=== PATIENT | female | born 1950 | race Caucasian/White ===

== ENCOUNTER 2018-06-28 10:38 | Observation (INO) ==
[2018-06-28] MEDS ORDERED: Ondansetron 4 MG/2 ML VIAL IVP ONE (11:02)
[2018-06-28] MEDS ORDERED: Pantoprazole 80 MG in 0.9 % Sodium Chloride 50 ML IVPB ONE (11:02)
--- NOTE | 2018-06-28 11:04 | Emergency Department Note ---
Disposition Clinical Impression: Upper gastrointestinal hemorrhage Disposition: Still a Patient Condition: Undetermined Referrals: Susy London CNP [Primary Care Provider] - Forms: ED Satisfaction Letter GI Bleed HPI - General Chief complaint: ED GI Bleed Stated complaint: "vomiting blood,rectal bleeding" Time Seen by Provider: 06/28/18 10:49 Source: patient, family Mode of arrival: private vehicle Limitations: no limitations Nursing Notes Reviewed: Yes Vital Signs Reviewed: Yes - History of Present Illness Pt Subjective Complaint: coffee ground emesis, melena Onset (ago): hour(s) Number of episodes: 3 Consistency: intermittent Severity: mild Improves with: nothing Worsens with: nothing Context: history of GI bleed Associated symptoms: Reports: abdominal pain, nausea, vomiting, chills, loss of appetite. Denies: epistaxis, fever, headaches, malaise, easy bruising, rash, other bleeding source, shortness of breath, syncope/near-syncope, weakness Treatments Prior to Arrival: none - Related Data Home Medications Medication Instructions Recorded Confirmed Albuterol Sulfate [Albuterol 2 puff IH Q6HR 08/26/15 08/01/16 Inhaler] Ferrous Sulfate 325 mg PO DAILY 08/26/15 08/01/16 Fluticasone/Salmeterol [Advair 1 each IH BID 08/26/15 08/01/16 250-50 Diskus] Sertraline [Zoloft] 25 mg PO DAILY 08/26/15 08/01/16 clonazePAM [Clonazepam] 0.25 mg PO DAILY 08/26/15 08/01/16 Aspirin Enteric Coated [Aspirin EC] 81 mg PO DAILY 05/26/16 08/01/16 Diltiazem HCl [Cardizem Cd] 360 mg PO DAILY 05/26/16 08/01/16 Breo Ellipta 100-25 Mcg INH 03/14/18 Previous Rx's Medication Instructions Recorded Acetaminophen [Tylenol] 500 mg PO Q6HR PRN #20 tablet 03/14/18 Allergies Allergy/AdvReac Type Severity Reaction Status Date / Time cephalexin [From Keflex] Allergy Rash Verified 03/14/18 16:52 All systems ED: reviewed and negative except as stated. Review of Systems: As Per HPI Constitutional: Reports: as per HPI, chills. Denies: fever, weakness, weight change Eyes: Denies: vision change Cardiovascular: Denies: chest pain, palpitations, dyspnea on exertion, orthopnea , edema, syncope Respiratory: Denies: cough, dyspnea, wheezes Gastrointestinal: Reports: as per HPI, abdominal pain, nausea, vomiting, melena. Denies: diarrhea, constipation, hematemesis, hematochezia Genitourinary: Denies: urgency, dysuria, frequency, hematuria Musculoskeletal: Denies: back pain Neurological: Denies: weakness, numbness, paresthesias, vertigo Endocrine: Denies: fatigue Hematological/Lymphatic: Denies: easy bleeding, easy bruising Past Medical History - Past Medical History Attestation: Yes The following information was validated with the patient. Source: patient Medical history: Reports: GERD, GI bleed Surgical history: Reports: orthopedic, other Psychiatric history: Reports: anxiety COAL BAGGER history: Reports: no COAL BAGGER history - Social History Smoking Status: Current every day smoker Smokeless Tobacco Status: No Alcohol use: Reports: none Drug use: Reports: none Physical Exam - General Limitations: no limitations General appearance: alert, in no apparent distress, anxious, other (diaphoretic) - Head Head exam: atraumatic, normocephalic, normal inspection - Eye Eye exam: Present: normal appearance, PERRL. Absent: scleral icterus, conjunctival injection, periorbital swelling - ENT ENT exam: mucous membranes dry - Neck Neck exam: Present: normal inspection, trachea midline - Expanded Neck Exam Neck exam focused ED: Absent: JVD - Chest Chest inspection: Present: normal inspection - Respiratory Respiratory exam: Present: wheezes (mild, bilateral upper). Absent: respiratory distress - Cardiovascular Cardiovascular exam: Present: normal rhythm, tachycardia - Abdominal Exam Abdominal exam: Present: soft, tenderness, distention, hypoactive bowel sounds. Absent: guarding, rebound, rigidity, Rollins's sign, ascites, mass, pulsatile mass Abdominal tenderness: Present: epigastrium, mild - Extremities Exam Extremities exam: Present: normal inspection, full ROM. Absent: tenderness, pedal edema - Neurological Exam Neurological exam: Present: alert, oriented X3, CN II-XII intact - Psychiatric Psychiatric exam: Present: normal affect, anxious - Skin Skin exam: Present: warm, dry, intact, normal color Course Course Narrative: Patient with history of previous peptic ulcer disease and bleeding ulcer back in 2016 presents from home for evaluation of epigastric pain and coffee-ground emesis 3 this morning. She also describes a dark color to her stool this morning. She denies melena prior to today. She had three episodes of emesis which she describes as about a cup or less and dark brown. Her pain is better now, despite any intervention. She continues to be nauseated and is diaphoretic. She denies chest pain, shortness of breath beyond her baseline COPD, dizziness, vertigo or syncope. She denies use of any blood thinners. On exam, she is tachycardic with mild epigastric tenderness, Mild abdominal distention, black stool on rectal exam, mild diaphoresis and mild symmetric peripheral edema. She also has diffuse wheezes upper anterior. Heart sounds are normal. No murmur. She is tachycardic. Two large bore IVs have been ordered along with an Accu-Check, EKG, type and screen, screening labs , Zofran and Protonix. Blood pressure is elevated at this time. Fluids have been ordered. At 150 per hour. Case discussed with Dr. Macdonald. He has had [id number] time with the patient has reviewed her EKG and will be taking over care of this patient. Vital Signs Temperature 98.2 F 06/28/18 10:40 Pulse Rate 122 06/28/18 10:40 Respiratory Rate 22 06/28/18 10:40 Blood Pressure 146/93 06/28/18 10:40 O2 Sat by Pulse Oximetry 96 06/28/18 10:40 Temperature 98.2 F 06/28/18 10:51 Pulse Rate 109 06/28/18 11:09 Respiratory Rate 19 06/28/18 11:09 Blood Pressure 115/88 06/28/18 11:09 O2 Sat by Pulse Oximetry 96 06/28/18 11:09 Oxygen Delivery Oxygen Delivery Room Air GI Bleed - Medical Records Medical records reviewed: Yes I reviewed the patient's medical records. - Lab Data Result diagrams: 06/28/18 11:15 06/28/18 11:15 Lab Results 06/28/18 06/28/18 06/28/18 Range/Units 11:14 11:15 11:15 WBC 8.2 (4.3-11.1) K/mcL RBC 4.64 (3.82-4.97) M/mcL Hgb 12.3 (11.5-15.4) g/dL Hct 38.9 (35.3-44.9) % MCV 83.8 (83.0-100.0) fL MCH 26.5 L (28.0-33.3) pg MCHC 31.6 (31.6-35.5) g/dL RDW 14.2 (11.5-14.5) % Plt Count 263 (140-400) K/mcL MPV 9.7 (9.4-12.4) fL Immature Gran % 0.5 (0-4) % Seg Neutrophils % 76.7 % Lymphocytes % 14.0 % Monocytes % 6.1 % Eosinophils % 2.2 % Basophils % 0.5 % Neutrophils # 6.3 (1.6-8.9) K/mcL Lymphocytes # 1.1 (0.6-4.6) K/mcL Monocytes # 0.5 (0.0-1.3) K/mcL Eosinophils # 0.2 (0.0-0.6) K/mcL Basophils # 0.0 (0.0-0.2) K/mcL PT 12.3 H (9.4-12.1) Seconds INR 1.1 APTT 28.7 (26.0-36.0) Seconds Sodium (136-145) mEq/L Potassium (3.5-5.1) mEq/L Chloride (98-107) mEq/L Carbon Dioxide (23-29) mEq/L BUN (8-23) mg/dL Creatinine (0.60-1.20) mg/dL Est GFR ( Amer) (> 60) Est GFR (Non-Af Amer) (> 60) BUN/Creatinine Ratio (6-26) Glucose (70-105) mg/dL POC Glucose 126 H (70-99) mg/dL Calculated Osmolality (280-300) Calcium (8.6-10.3) mg/dL Magnesium (1.6-2.6) mg/dL Total Bilirubin (0.3-1.0) mg/dL AST (13-39) Units/L ALT (7-52) Units/L Alkaline Phosphatase (34-104) Units/L Serum Total Protein (6.4-8.9) g/dL Albumin (3.5-5.7) g/dL Globulin (2.4-3.5) g/dL Albumin/Globulin Ratio (1.1-2.2) Lipase (11-82) Units/L Stool Occult Bld Scrn (Negative) Blood Type Antibody Screen 06/28/18 06/28/18 06/28/18 Range/Units 11:15 11:15 Unknown WBC (4.3-11.1) K/mcL RBC (3.82-4.97) M/mcL Hgb (11.5-15.4) g/dL Hct (35.3-44.9) % MCV (83.0-100.0) fL MCH (28.0-33.3) pg MCHC (31.6-35.5) g/dL RDW (11.5-14.5) % Plt Count (140-400) K/mcL MPV (9.4-12.4) fL Immature Gran % (0-4) % Seg Neutrophils % % Lymphocytes % % Monocytes % % Eosinophils % % Basophils % % Neutrophils # (1.6-8.9) K/mcL Lymphocytes # (0.6-4.6) K/mcL Monocytes # (0.0-1.3) K/mcL Eosinophils # (0.0-0.6) K/mcL Basophils # (0.0-0.2) K/mcL PT (9.4-12.1) Seconds INR APTT (26.0-36.0) Seconds Sodium 141 (136-145) mEq/L Potassium 4.4 (3.5-5.1) mEq/L Chloride 111 H (98-107) mEq/L Carbon Dioxide 24 (23-29) mEq/L BUN 36 H (8-23) mg/dL Creatinine 0.71 (0.60-1.20) mg/dL Est GFR ( Amer) > 60 (> 60) Est GFR (Non-Af Amer) > 60 (> 60) BUN/Creatinine Ratio 51 H (6-26) Glucose 122 H (70-105) mg/dL POC Glucose (70-99) mg/dL Calculated Osmolality 302 H (280-300) Calcium 9.1 (8.6-10.3) mg/dL Magnesium 2.1 (1.6-2.6) mg/dL Total Bilirubin 0.4 (0.3-1.0) mg/dL AST 9 L (13-39) Units/L ALT 10 (7-52) Units/L Alkaline Phosphatase 81 (34-104) Units/L Serum Total Protein 6.3 L (6.4-8.9) g/dL Albumin 3.7 (3.5-5.7) g/dL Globulin 2.6 (2.4-3.5) g/dL Albumin/Globulin Ratio 1.4 (1.1-2.2) Lipase 11 (11-82) Units/L Stool Occult Bld Scrn Positive A (Negative) Blood Type O POSITIVE Antibody Screen NEGATIVE Attestation Statement - Attestation Attestation: Dr Macdonald note: Patient was seen in conjunction with physician promotions assistant sales marketing Juliane Peoples. Please see her charting for complete documentation. Assessment [id number] time with the patient and agree with patient's treatment and disposition. Patient will be admitted to the hospitalist with a surgical/endoscopy consult to the surgeon Dr. Marie whom I spoke with. The patient does not require an emergent endoscopy at this time but may require admission. Patient's heart rate has stabilized to 100 bpm after she vomited in the ER. She has had vague intermittent epigastric pain for days to weeks. History of same but much more severe couple years ago for which a transfusion was required. Clinically she does not require a transfusion at this time. Will be admitted for serial hemoglobin and symptomatic support. Admitted and stabilized improved condition
[2018-06-28] MEDS ORDERED: 0.9 % Sodium Chloride 1,000 ML IVC ONE (11:09)
[2018-06-28 11:34] LABS: Basophils % 0.5 %; Eosinophils # 0.2 K/mcL (0.0-0.6); Eosinophils % 2.2 %; Hematocrit 38.9 % (35.3-44.9); Hemoglobin 12.3 g/dL (11.5-15.4); Immature Granulocytes % 0.5 % (0-4); Lymphocytes # 1.1 K/mcL (0.6-4.6); Mean Corpuscular HGB Conc 31.6 g/dL (31.6-35.5); Mean Corpuscular Hemoglobin 26.5 pg (28.0-33.3); Mean Corpuscular Volume 83.8 fL (83.0-100.0); Mean Platelet Volume 9.7 fL (9.4-12.4); Monocytes # 0.5 K/mcL (0.0-1.3); Monocytes % 6.1 %; Neutrophils # 6.3 K/mcL (1.6-8.9); Platelet Count 263 K/mcL (140-400); Red Blood Count 4.64 M/mcL (3.82-4.97); Red Cell Distribution Width 14.2 % (11.5-14.5); Segmented Neutrophils % 76.7 %
[2018-06-28 11:39] LABS: INR 1.1; Prothrombin Time 12.3 Seconds (9.4-12.1)
[2018-06-28 11:43] LABS: Activated Partial Thrombo Time 28.7 Seconds (26.0-36.0)
[2018-06-28] MEDS ORDERED: Pantoprazole 40 MG VIAL IVP ONE (11:50)
[2018-06-28 11:54] LABS: Alanine Aminotransferase 10 Units/L (7-52); Albumin 3.7 g/dL (3.5-5.7); Albumin/Globulin Ratio 1.4 (1.1-2.2); Alkaline Phosphatase 81 Units/L (34-104); Aspartate Amino Transferase 9 Units/L (13-39); BUN/Creatinine Ratio 51 (6-26); Bilirubin,Total 0.4 mg/dL (0.3-1.0); Blood Urea Nitrogen 36 mg/dL (8-23); Calcium 9.1 mg/dL (8.6-10.3); Carbon Dioxide 24 mEq/L (23-29); Chloride 111 mEq/L (98-107); Globulin 2.6 g/dL (2.4-3.5); Glucose 122 mg/dL (70-105); Lipase 11 Units/L (11-82); Magnesium 2.1 mg/dL (1.6-2.6); Osmolality,Calculated 302 (280-300); Potassium 4.4 mEq/L (3.5-5.1); Sodium 141 mEq/L (136-145); Total Protein 6.3 g/dL (6.4-8.9); eGFR For Non-African Americans > 60 (> 60)
[2018-06-28] MEDS ORDERED: *HR* Promethazine 25 MG/ML VIAL IVP PRN (14:38)
[2018-06-28] MEDS ORDERED: Ondansetron 4 MG/2 ML VIAL IVP PRN (14:38)
[2018-06-28] MEDS ORDERED: Naloxone 0.4 MG/ML INJ IVP PRN (15:09)
--- NOTE | 2018-06-28 15:29 | Internal Med History&Physical ---
<JillianarvingertrudisMatthew jain - Last Filed: 06/28/18 16:07> Date of Encounter: 06/28/18 Time of Encounter: 14:30 Internal Medicine - H&P: HPI Chief complaint: GI bleed Admitted From: Emergency Dept Plans for Post Hospital Care: Home History of present illness: Ms. Abebe is a 68 year old female w/PMH of GERD previous GI bleed from peptic ulcer, COPD, HTN, anxiety, and chronic tobacco abuse presents from the ED with chief complaint of GI bleeding that began this morning. Patient reports 3 episodes of hematemesis with coffee-ground consistency and 1 episode of melanotic stool. Pt. hospitalized in 07/2016 for GI bleed. EGD on 08/01/16 showed normal ampulla, first part of the duodenum and second part of the duodenum.b gastritis with biopsy. Nonbleeding gastric ulcer with no stigmata of bleeding which was biopsied. Large hiatal hernia. Benign-appearing esophageal stenosis which was dilated and biopsied. Pt. reports epigastric pain for the past 6 weeks intermittently which has become constant over the past week. No alleviating or aggravating factors. Reports compliance w/PO Prilosec daily. Pt. reports N/V, abdominal pain, and SOB d/t COPD but denies recent illness, fever, chills, headache, changes in vision, chest pain, diarrhea, constipation, dizziness, lightheadedness, numbness, tingling, pre-syncope, or syncope. Past Med Surg Social Fam HX - Past Medical History Source: patient, old records reviewed, obtained from family Medical history: COPD, GERD, GI bleed, hypertension Additional medical history: Anemia. Uterine Prolapse. PUD Psychiatric history: anxiety - Past Surgical History Surgical History: orthopedic, other Additional surgical history: AVNRT Ablation. Right and Left Knee Scope. Right foot - Social History Smoking Status: Current every day smoker Packs per day: 1 PPD Smokeless Tobacco Status: No Alcohol use: rarely Drug use: marijuana Current living situation: Home, With Family Activity Level: Independent ambulation Recent Out of Country Travel Within the Last 8 Weeks: No Exposure or Possible Exposure to Illness During Travel: No - Family History Brother Race: Family Member Ethnicity: Non- Living Status: Age at : 75 Cause of : COPD Hx Family Cardiac Disorders: Yes (CAD) Hx Family Respiratory Disorders: Yes (COPD) Sister Race: Family Member Ethnicity: Non- Living Status: Age at : 63 Cause of : COPD Hx Family Cardiac Disorders: Yes (OR, Weakened heart from rheumatic fever) Hx Family Respiratory Disorders: Yes (COPD) Father Race: Family Member Ethnicity: Non- Living Status: Age at : 62 Cause of : Esophageal cancer Hx Family Cardiac Disorders: Yes (OR, CVA) Hx Family Neurologic Disorders: Yes (CVA) Mother Race: Family Member Ethnicity: Non- Living Status: Age at : 81 Cause of : Aneurysm in stomach that ruptured Hx Family Cardiac Disorders: Yes (Aneurysm, Pacemaker) Internal Medicine - H&P: Meds Fluticasone/Salmeterol [Advair 250-50 Diskus] 1 puff IH BID 08/26/15 [History] Aspirin Enteric Coated [Aspirin EC] 81 mg PO DAILY 05/26/16 [History] Diltiazem HCl [Cardizem Cd] 360 mg PO DAILY 05/26/16 [History] Acetaminophen [Tylenol] 500 mg PO Q6HR PRN #20 tablet 03/14/18 [Rx] Albuterol Sulfate [Albuterol Inhaler] 2 puff IH Q6H PRN 06/28/18 [History] Omeprazole [PriLOSEC] 40 mg PO DAILY 06/28/18 [History] Sertraline [Zoloft] 25 mg PO DAILY 06/28/18 [History] clonazePAM [Clonazepam] 0.25 mg PO DAILY PRN 06/28/18 [History] 3 Allergy/AdvReac Type Severity Reaction Status Date / Time cephalexin [From Keflex] Allergy Rash Verified 03/14/18 16:52 All Systems PM: A 10-system review of systems was performed and is negative for pertinent findings except as documented above in the HPI. - Constitutional Constitutional: as per HPI, weakness (Bilateral LEs), no chills, no fever(s), no night sweats - EENT Eyes: no change in vision, no discharge, no pain, no photophobia Ears: no ear discharge, no ear pain, no tinnitus Nose, mouth and throat: no dysphagia, no nasal discharge, no neck pain, no sore throat - Breasts Breasts: as per HPI - Cardiovascular Cardiovascular ROS IM: as per HPI, dyspnea, dyspnea on exertion, no chest pain, no diaphoresis, no lightheadedness, no palpitations, no syncope - Respiratory Respiratory: as per HPI, dyspnea, dyspnea on exertion, no cough, no wheezing, no excessive phlegm production - Gastrointestinal Gastrointestinal: as per HPI, abdominal pain, hematemesis, melena, nausea, vomiting, no diarrhea, no hematochezia - Genitourinary Genitourinary: no change in urinary stream, no dysuria, no flank pain, no hematuria Menstruation: as per HPI - Musculoskeletal Musculoskeletal ROS IM: no numbness, no tingling - Integumentary Integumentary IM: no rash, no unusual bruising - Neurological Neurological ROS: as per HPI, weakness (Bilateral LEs), no confusion, no convulsions, no focal weakness, no numbness, no tingling, no tremor(s) - Psychiatric Psychiatric: as per HPI, anxiety - Endocrine Endocrine IM: as per HPI - Hematologic/Lymphatic Hematologic/Lymphatic: no easy bruising - Allergic/Immunologic Allergic/Immunologic: as per HPI - Constitutional Vitals: Temp Pulse Resp BP Pulse Ox 98.1 F 100 14 107/75 95 06/28/18 14:09 06/28/18 14:09 06/28/18 14:09 06/28/18 14:06/28/18 14:09 General appearance: Present: cooperative, mild distress (Nausea, abdominal pain , SOB), A&O X 3, pleasant, obese, answers questions appropriately Exam: Patient examined at bedside. Pt. reports epigastric pain currently w/nausea but denies vomiting. Also reports SOB d/t COPD hx. NPO status d/t plan for possible EGD today. Pt. denies any other sx or complaints on exam. VS: 98.2F temp, HR 10 , RR 20, BP 117/84, SpO2 96% on RA. Plan of care discussed w/pt. and family present who expressed understanding and agreement. - Head Head exam: Present: atraumatic, normocephalic - Eye Eye exam: Present: PERRL, conjuntiva pink, sclera anicteric Pupils: Present: PERRL - ENT ENT exam: Present: normal exam - Neck Neck exam general surgery: Present: normal inspection, supple, trachea midline. Absent: lymphadenopathy - Respiratory Respiratory exam: Present: accessory muscle use, wheezes. Absent: rales, rhonchi - Cardiovascular Cardiovascular exam: Present: +S1, +S2, tachycardia. Absent: diastolic murmur, gallop, rubs, systolic murmur - GI/Abdominal GI/Abdominal exam: Present: normal bowel sounds, soft, no peritoneal signs. Absent: distended, tenderness - Rectal Rectal exam: Present: deferred - Additional comments: exam deferred. - Extremities Exam Extremities exam: Present: pedal edema, warm, radial pulses palpable and symmetrical. Absent: calf tenderness, cyanotic - Back Exam Back exam: Present: normal inspection - Neurological Exam Neurological exam: Present: alert, CN II-XII intact, oriented X3, no focal deficits. Absent: pronater drift, facial droop, speech deficit - Psychiatric Psychiatric exam: Present: normal affect, normal mood - Skin Skin exam: Present: dry, intact Internal Med - H&P Results - Labs CBC & Chem 7: 06/28/18 11:15 06/28/18 11:15 - Assessment and plan (1) GI bleed Current Visit: Yes Status: Acute Assessment and plan: Acute GI bleed. Pt. reports hx of GI bleed in 07/2016. EGD on 08/01/16 showed normal ampulla, first part of the duodenum and second part of the duodenum.b gastritis with biopsy. Nonbleeding gastric ulcer with no stigmata of bleeding which was biopsied. Large hiatal hernia. Benign-appearing esophageal stenosis which was dilated and biopsied. States she's had intermittent abdominal pain, nausea, and vomiting over the past 6 weeks. Reports 3 episodes of coffee ground hematemesis today and 1 melanotic stool. Hx of chronic GERD on Prilosec. Hiatal hernia. Hgb 12.3 and Hct 38.9 on admission. H/H ordered at 04:00. NPO now d/t possible EGD today. IVP Zofran and Phenergan ordered for N/V. Protonix drip. Cardiac monitoring. Monitor I&O and daily weight. Consult to Surgery placed in ED and pt. discussed w/Dr. Marie and I appreciate the consult and recommendations as always. Pt. discussed w/Dr. Madison who agrees w/plan of care. Pt. is high risk for further morbidity and complications d/t current GI bleeding, hx of abdominal pain/N/V over the past 6 weeks, hx of GI bleed 2 years ago, need for EGD, hx; and risk factors. Observation. Qualifiers: GI bleed type/associated pathology: unspecified gastrointestinal hemorrhage type Qualified Code(s): K92.2 - Gastrointestinal hemorrhage, unspecified (2) Nausea and vomiting Current Visit: Yes Status: Acute Assessment and plan: Acute nausea and vomiting associated w/abdominal pain over the past 6 weeks. Pt. reports hematemesis x3 today w/coffee ground quality. Pt. given IVP Protonix in the ED. Protonix drip ordered. Monitor I&O and daily weight. IVP Zofran and Phenergan for N/V. Qualifiers: Vomiting type: cyclical vomiting Vomiting Intractability: non-intractable Qualified Code(s): G43.A0 - Cyclical vomiting, not intractable (3) SOB (shortness of breath) Current Visit: Yes Status: Acute Assessment and plan: Acute on chronic SOB. Pt. has hx of chronic COPD. Continue pts. inhalers. Supplemental O2 w/titration and SpO2 monitoring. Falls/safety precautions and up with assist only. (4) Abdominal pain Current Visit: Yes Status: Acute Assessment and plan: Acute on chronic abdominal pain for the past 6 weeks that was intermittent and now chronic over the past week. Epigastric area. N/V. Pt. reports compliance w/ daily PO Prilosec. Protonix drip. IVP Zofran and Phenergan for N/V. NPO d/t possible EGD today. Qualifiers: Abdominal location: epigastric Qualified Code(s): R10.13 - Epigastric pain (5) GERD (gastroesophageal reflux disease) Current Visit: Yes Status: Chronic Assessment and plan: Hx of chronic GERD. Hold pts. PO Prilosec and start Protonix drip. IVP Zofran and Phenergan ordered for N/V. Qualifiers: Esophagitis presence: esophagitis presence not specified Qualified Code(s) : K21.9 - Gastro-esophageal reflux disease without esophagitis (6) COPD (chronic obstructive pulmonary disease) Current Visit: Yes Status: Chronic Assessment and plan: Hx of chronic COPD. Stable. Continue pts. inhalers. Supplemental O2 w/titration and SpO2 monitoring. Qualifiers: COPD type: unspecified COPD Qualified Code(s): J44.9 - Chronic obstructive pulmonary disease, unspecified (7) HTN (hypertension) Current Visit: Yes Status: Chronic Assessment and plan: Hx of chronic HTN. Monitor pt. and VS. Continue pts. Cardizem. Communication order to hold pts. BP medication if BP <120/70 at time of ordered dose and notify provider. Qualifiers: Hypertension type: essential hypertension Qualified Code(s): I10 - Essential (primary) hypertension (8) History of GI bleed Current Visit: Yes Status: Chronic Assessment and plan: Hx of GI bleed in 07/2016. EGD showed normal ampulla, first part of the duodenum and second part of the duodenum.b gastritis with biopsy. Nonbleeding gastric ulcer with no stigmata of bleeding which was biopsied. Large hiatal hernia. Benign-appearing esophageal stenosis which was dilated and biopsied. (9) DVT prophylaxis Current Visit: Yes Status: Acute Assessment and plan: Bilateral SCDs on LEs for DVT prophylaxis d/t current GI bleeding. (10) Weakness of both lower extremities Current Visit: Yes Status: Acute Assessment and plan: Acute weakness of bilateral LEs. Falls/safety precautions. Up with assist only. PT/OT consults to assess for possible rehabilitation needs. - Time Spent With Patient Total time spent is greater than 50% in coordination of care (as documented) at patient's floor/unit and/or counseling patient: Greater than 35 minutes <Trevor Madison - Last Filed: 06/28/18 21:41> Date of Encounter: 06/28/18 Internal Medicine - H&P: HPI History of present illness: Ms. Abebe is a 68 year old female All Systems PM: A 10-system review of systems was performed and is negative for pertinent findings except as documented above in the HPI. - Constitutional Vitals: Temp Pulse Resp BP Pulse Ox 98.3 F 99 15 100/69 94 06/28/18 19:46 06/28/18 19:46 06/28/18 19:46 06/28/18 19:46 06/28/18 19:46 Internal Med - H&P Results - Labs CBC & Chem 7: 06/28/18 11:15 06/28/18 11:15 - Assessment and plan (1) GI bleed Current Visit: Yes Status: Acute Qualifiers: GI bleed type/associated pathology: unspecified gastrointestinal hemorrhage type Qualified Code(s): K92.2 - Gastrointestinal hemorrhage, unspecified (2) Nausea and vomiting Current Visit: Yes Status: Acute Qualifiers: Vomiting type: cyclical vomiting Vomiting Intractability: non-intractable Qualified Code(s): G43.A0 - Cyclical vomiting, not intractable (3) SOB (shortness of breath) Current Visit: Yes Status: Acute (4) Abdominal pain Current Visit: Yes Status: Acute Qualifiers: Abdominal location: epigastric Qualified Code(s): R10.13 - Epigastric pain (5) GERD (gastroesophageal reflux disease) Current Visit: Yes Status: Chronic Qualifiers: Esophagitis presence: esophagitis presence not specified Qualified Code(s) : K21.9 - Gastro-esophageal reflux disease without esophagitis (6) History of GI bleed Current Visit: Yes Status: Chronic (7) COPD (chronic obstructive pulmonary disease) Current Visit: Yes Status: Chronic Qualifiers: COPD type: unspecified COPD Qualified Code(s): J44.9 - Chronic obstructive pulmonary disease, unspecified (8) HTN (hypertension) Current Visit: Yes Status: Chronic Qualifiers: Hypertension type: essential hypertension Qualified Code(s): I10 - Essential (primary) hypertension (9) DVT prophylaxis Current Visit: Yes Status: Acute (10) Weakness of both lower extremities Current Visit: Yes Status: Acute - Time Spent With Patient Total time spent is greater than 50% in coordination of care (as documented) at patient's floor/unit and/or counseling patient: - Attending Attestation Seen and assessed. Agree with plan per ART INSTRUCTOR. Continue management for GI bleed
[2018-06-28] MEDS: Pantoprazole 40 MG in 0.9 % Sodium Chloride Mini Bag 100 ML IVC SCH ×2 (16:16→21:01)
[2018-06-28] MEDS ORDERED: Tetracaine/Benzocaine/Butamben 200MG/SPRAY (100SPY/BOT) MM ONE (17:15)
[2018-06-28] MEDS ORDERED: Simethicone 40 MG/0.6 ML MLS IR ONE (17:15)
[2018-06-28] MEDS ORDERED: *HR* Midazolam HCl 5 MG/5 ML VIAL IVP ONE (17:15)
[2018-06-28] MEDS ORDERED: *HR* FentaNYL (PF) 100 MCG/2 ML VIAL IVP ONE (17:15)
--- NOTE | 2018-06-28 17:17 | General Surgery Consult Note ---
Date of Encounter: 06/28/18 Time of Encounter: 13:35 History of Present Illness Consult date: 06/28/18 Requesting physician: Matthew Diaz History of present illness: 68-year-old referred to general surgery/GI hemorrhage service for further evaluation of coffee-ground emesis. The patient presented to the emergency department after experiencing 3 episodes of coffee-ground emesis. The patient has also noted black tarry stools/melena. Patient has similar episode in 2016 for which an EGD was completed by Dr. Carlin. Findings included ulceration at the GE junction, a large hiatal hernia. Biopsies were benign. Patient is been referred for repeat evaluation of these new symptoms. Despite the patient's complaints, her weight is been stable and she has been hemodynamically stable. Hemoglobin is 12.3 with hematocrit 38.9. PT 12.3, INR 1.1. Electrolytes were within normal limits, BUN was elevated at 26, creatinine 0.6 Past medical history: COPD, hypertension, peptic ulcer disease, anxiety, continued tobacco use, and cardiac dysrhythmia treated with cardiac ablation Surgical history includes cardiac ablation, bilateral knee arthroscopy; EGD and colonoscopy completed in 2016 Allergies: Cephalexin Medications: Fluticasone/salmeterol 250/50 g one puff twice a day Aspirin 81 mg by mouth daily Diltiazem 360 mg by mouth daily Tylenol 500 mg by mouth every 6 hours as needed Albuterol sulfate 2 puffs every 6 hours as needed Omeprazole 40 mg by mouth daily Sertraline 25 mg by mouth daily Clonazepam 0.25 mg by mouth daily when necessary Social history: Patient continues to smoke; admitting to 2 packs per day for 30 + years; she minutes to an occasional alcoholic beverage as well as marijuana. She denies any cocaine meth or other illicit drug use Physical examination reveals an elderly moderately obese female in no acute distress. She is resting comfortably in her hospital bed The patient has been afebrile, 98.1; pulse 100, respirations 14 and unlabored , BP 107/75; SPO2 on room air 95-100% Skin: Warm, no obvious jaundice Lungs: Clear bilaterally Cardiac: Regular rate, no appreciable murmurs Abdomen: Minimal epigastric tenderness without palpable masses. No obvious hepatosplenomegaly. No rebound. Extremities: Without clubbing, cyanosis, or edema. Impression: 68-year-old female referred to general surgery/GI hemorrhage coverage for further evaluation of coffee-ground emesis. Patient has a history of peptic ulcer disease with EGD demonstrating a large hiatal hernia and superficial mucosal ulceration at the esophagogastric junction in 2016. The patient described 3 episodes of hematemesis as well as black tarry stools /melena. Spite these findings hemoglobin is normal at 12.3. The patient is on no significant nonsteroidal anti-inflammatories except aspirin 81 mg by mouth daily; no recent anticoagulation Plan: EGD using IV meds; biopsies will be obtained as appropriate The procedure was discussed in detail. Risks include hemorrhage, aspiration, infection, cramping abdominal pain, bloating, and perforation. The patient and her family in attendance expressed understanding. Consent for the EGD obtained Past Med Surg Social Fam HX - Past Medical History Medical history: COPD, GERD, GI bleed, hypertension Additional medical history: Anemia. Uterine Prolapse. PUD Psychiatric history: anxiety - Past Surgical History Surgical History: orthopedic, other Additional surgical history: AVNRT Ablation. Right and Left Knee Scope. Right foot - Social History Smoking Status: Current every day smoker Packs per day: 1 PPD Smokeless Tobacco Status: No Alcohol use: rarely Drug use: marijuana - Family History Brother Race: Family Member Ethnicity: Non- Living Status: Age at : 75 Cause of : COPD Hx Family Cardiac Disorders: Yes (CAD) Hx Family Respiratory Disorders: Yes (COPD) Hx Family Endocrine Disorder: Yes Sister Race: Family Member Ethnicity: Non- Living Status: Age at : 63 Cause of : COPD Hx Family Cardiac Disorders: Yes (RI, Weakened heart from rheumatic fever) Hx Family Respiratory Disorders: Yes (COPD) Father Race: Family Member Ethnicity: Non- Living Status: Age at : 62 Cause of : Esophageal cancer Hx Family Cardiac Disorders: Yes (RI, CVA) Hx Family Neurologic Disorders: Yes (CVA) Mother Race: Family Member Ethnicity: Non- Living Status: Age at : 81 Cause of : Aneurysm in stomach that ruptured Hx Family Cardiac Disorders: Yes (Aneurysm, Pacemaker) Medications and Allergies Fluticasone/Salmeterol [Advair 250-50 Diskus] 1 puff IH BID 08/26/15 [History] Aspirin Enteric Coated [Aspirin EC] 81 mg PO DAILY 05/26/16 [History] Diltiazem HCl [Cardizem Cd] 360 mg PO DAILY 05/26/16 [History] Acetaminophen [Tylenol] 500 mg PO Q6HR PRN #20 tablet 03/14/18 [Rx] Albuterol Sulfate [Albuterol Inhaler] 2 puff IH Q6H PRN 06/28/18 [History] Omeprazole [PriLOSEC] 40 mg PO DAILY 06/28/18 [History] Sertraline [Zoloft] 25 mg PO DAILY 06/28/18 [History] clonazePAM [Clonazepam] 0.25 mg PO DAILY PRN 06/28/18 [History] 3 Allergy/AdvReac Type Severity Reaction Status Date / Time cephalexin [From Keflex] Allergy Rash Verified 03/14/18 16:52 Review of Systems All systems PM: The remainder of the systems were reviewed and are negative General Surgery Exam Initial Vital Signs Temp Pulse Resp BP Pulse Ox 98.2 F 122 22 146/93 96 06/28/18 10:40 06/28/18 10:40 06/28/18 10:40 06/28/18 10:40 06/28/18 10:40 Exam Initial Vital Signs Temp Pulse Resp BP Pulse Ox 98.2 F 122 22 146/93 96 06/28/18 10:40 06/28/18 10:40 06/28/18 10:40 06/28/18 10:40 06/28/18 10:40 Results - Labs 06/28/18 11:15 06/28/18 11:15 Abnormal lab results MCH 26.5 pg (28.0-33.3) L 06/28/18 11:15 PT 12.3 Seconds (9.4-12.1) H 06/28/18 11:15 Chloride 111 mEq/L (98-107) H 06/28/18 11:15 BUN 36 mg/dL (8-23) H 06/28/18 11:15 BUN/Creatinine Ratio 51 (6-26) H 06/28/18 11:15 Glucose 122 mg/dL (70-105) H 06/28/18 11:15 POC Glucose 114 mg/dL (70-99) H 06/28/18 17:05 Calculated Osmolality 302 (280-300) H 06/28/18 11:15 AST 9 Units/L (13-39) L 06/28/18 11:15 Serum Total Protein 6.3 g/dL (6.4-8.9) L 06/28/18 11:15 Stool Occult Bld Scrn Positive (Negative) A 06/28/18 Unknown All other labs normal. Consult Discharge Plan - Plan Referrals: Susy London, BERNABE [Primary Care Provider] -
--- NOTE | 2018-06-28 18:13 | Pre-Sedation Evaluation ---
Pre-sedation evaluation - Pre-sedation checklist Procedure: EGD Recent Vitals: Last Vital Signs Temp 98.1 F 06/28/18 14:09 Pulse 104 06/28/18 18:06 Resp 18 06/28/18 18:06 BP 134/87 06/28/18 18:06 Pulse Ox 97 06/28/18 18:06 H&P (including ROS) documented in medical record: Yes Previous reaction to sedatives/anesthetics: No Dietary Status: NPO after Midnight Airway Assessment: Patient can open mouth completely, TMJ function normal, Micrognathia (under-bite, receding chin) absent, Neck with adequate range of motion Dentition: dentures removed ASA Classification *see protocol: CLASS III-Severe systemic disease Plan of Care: Pt appropriate candidate for procedure/moderate/conscious sedation , Risks/benefits of procedure/sedation discussed w/ patient/family, If not NPO; Risk of intake outweiged by necessity to perform procedure Cardiac Registry (Cardio Only) - Functional Capacity - Clincal Frailty Scale
[2018-06-28] MEDS: Budesonide/Formoterol 160/4.5 1 PUFF INH IH SCH (20:03)
[2018-06-29] MEDS: Pantoprazole 40 MG in 0.9 % Sodium Chloride Mini Bag 100 ML IVC SCH (02:34)
[2018-06-29 03:41] LABS: Basophils % 0.4 %; Eosinophils # 0.3 K/mcL (0.0-0.6); Eosinophils % 4.4 %; Hematocrit 32.8 % (35.3-44.9); Immature Granulocytes % 0.3 % (0-4); Immature Platelets 1.8 % (1.1-6.1); Lymphocytes # 1.7 K/mcL (0.6-4.6); Lymphocytes % 24.7 %; Mean Corpuscular HGB Conc 31.4 g/dL (31.6-35.5); Mean Corpuscular Hemoglobin 26.4 pg (28.0-33.3); Mean Corpuscular Volume 84.1 fL (83.0-100.0); Mean Platelet Volume 9.3 fL (9.4-12.4); Monocytes # 0.5 K/mcL (0.0-1.3); Monocytes % 6.8 %; Neutrophils # 4.3 K/mcL (1.6-8.9); Platelet Count 254 K/mcL (140-400); Red Cell Distribution Width 14.6 % (11.5-14.5); Segmented Neutrophils % 63.4 %
[2018-06-29 03:43] LABS: Hemoglobin 10.3 g/dL (11.5-15.4)
[2018-06-29 04:07] LABS: Alanine Aminotransferase 8 Units/L (7-52); Albumin 3.2 g/dL (3.5-5.7); Albumin/Globulin Ratio 1.5 (1.1-2.2); Alkaline Phosphatase 69 Units/L (34-104); Aspartate Amino Transferase 8 Units/L (13-39); BUN/Creatinine Ratio 36 (6-26); Bilirubin,Total 0.3 mg/dL (0.3-1.0); Blood Urea Nitrogen 28 mg/dL (8-23); Calcium 8.4 mg/dL (8.6-10.3); Carbon Dioxide 22 mEq/L (23-29); Chloride 115 mEq/L (98-107); Chol/HDL Ratio 5.1 (0-4.9); Cholesterol 162 mg/dL (< 200); Globulin 2.2 g/dL (2.4-3.5); Glucose 95 mg/dL (70-105); HDL Cholesterol 32 mg/dL (40-59); LDL Cholesterol,Calculated 89 mg/dL (0-99); Osmolality,Calculated 299 (280-300); Potassium 3.9 mEq/L (3.5-5.1); Sodium 142 mEq/L (136-145); Total Protein 5.4 g/dL (6.4-8.9); Triglycerides 203 mg/dL (< 150); eGFR For Non-African Americans > 60 (> 60)
[2018-06-29 06:58] LABS: Estimated Average Glucose 123 mg/dl; Hemoglobin A1C 5.9 %
[2018-06-29] MEDS: Budesonide/Formoterol 160/4.5 1 PUFF INH IH SCH (07:42)
[2018-06-29] MEDS ORDERED: clonazePAM 0.5 MG TABLET PO PRN (07:54)
[2018-06-29] MEDS ORDERED: Diltiazem CD (24hr) 180 MG CAPSULE PO SCH (09:00)
[2018-06-29 14:48] VITALS: BP 105/71
--- NOTE | 2018-06-29 17:10 | Electrocardiograph Report ---
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
--- NOTE | 2018-06-29 18:00 | Discharge Summary ---
- NOTES TO OUTPATIENT PROVIDER Notes to Outpatient Provider: Patient was admitted for upper GI bleed. EGD showed 1 non-bleeding gastric ulcer with pigmented material. She has remained hemodynamically stable and will be discharged on Protonix 40 mg twice a day. Her Hb was 10.3 on discharge and will need H&H early next week for follow up. Aspirin which she was taking for primary prophylaxis was d/lindy. Orders not resulted at time of discharge: Pending orders 06/28/18 15:38 EKG [ECG 12 lead ECG] [ECG] Stat 06/30/18 04:00 Complete Blood Count [HEME] AM 0400 Comprehensive Metabolic Panel AM 0400 07/01/18 04:00 Complete Blood Count [HEME] AM 0400 Comprehensive Metabolic Panel AM 040 Date of Encounter: 06/29/18 Time of Encounter: 17:00 - Discharge Diagnosis (1) GI bleed Priority: Primary Status: Acute Qualifiers: GI bleed type/associated pathology: unspecified gastrointestinal hemorrhage type Qualified Code(s): K92.2 - Gastrointestinal hemorrhage, unspecified (2) Nausea and vomiting Priority: Secondary Status: Acute Qualifiers: Vomiting type: cyclical vomiting Vomiting Intractability: non-intractable Qualified Code(s): G43.A0 - Cyclical vomiting, not intractable (3) SOB (shortness of breath) Priority: Secondary Status: Acute (4) Abdominal pain Priority: Secondary Status: Acute Qualifiers: Abdominal location: epigastric Qualified Code(s): R10.13 - Epigastric pain (5) GERD (gastroesophageal reflux disease) Priority: Secondary Status: Chronic Qualifiers: Esophagitis presence: esophagitis presence not specified Qualified Code(s) : K21.9 - Gastro-esophageal reflux disease without esophagitis (6) History of GI bleed Priority: Secondary Status: Chronic (7) COPD (chronic obstructive pulmonary disease) Priority: Secondary Status: Chronic Qualifiers: COPD type: unspecified COPD Qualified Code(s): J44.9 - Chronic obstructive pulmonary disease, unspecified (8) HTN (hypertension) Priority: Secondary Status: Chronic Qualifiers: Hypertension type: essential hypertension Qualified Code(s): I10 - Essential (primary) hypertension (9) DVT prophylaxis Priority: Secondary Status: Acute (10) Weakness of both lower extremities Priority: Secondary Status: Acute Hospital course: Ms. Abebe is a 68 year old female was admitted for the concern of upper GI bleed. EGD showed 1 non-bleeding gastric ulcer with pigmented material. She has remained hemodynamically stable and will be discharged on Protonix 40 mg twice a day. Her Hb was 10.3 on discharge and will need H&H early next week for follow up. Aspirin which she was taking for primary prophylaxis was d/lindy. Discharge discussed with: patient, nurse - Time Spent with Patient Total time spent providing and/or coordinating discharge services: Greater than 30 minutes - Discharge Medications Prescriptions: Pantoprazole Sodium [Protonix] 40 mg PO BID #60 tablet. Home Medications: Fluticasone/Salmeterol [Advair 250-50 Diskus] 1 puff IH BID 08/26/15 [History] Diltiazem HCl [Cardizem Cd] 360 mg PO DAILY 05/26/16 [History] Acetaminophen [Tylenol] 500 mg PO Q6HR PRN #20 tablet 03/14/18 [Rx] Albuterol Sulfate [Albuterol Inhaler] 2 puff IH Q6H PRN 06/28/18 [History] Sertraline [Zoloft] 25 mg PO DAILY 06/28/18 [History] clonazePAM [Clonazepam] 0.25 mg PO DAILY PRN 06/28/18 [History] Pantoprazole Sodium [Protonix] 40 mg PO BID #60 tablet. 06/29/18 [Rx] Allergies/Adverse Reactions: 3 Allergy/AdvReac Type Severity Reaction Status Date / Time cephalexin [From Keflex] Allergy Rash Verified 03/14/18 16:52 Date of admission: 06/28/18 12:54 Primary care physician: Susy London Consults: 06/28/18 14:39 Consult to Surgery [CONS] Routine Consulting Provider: Surgery [place] [facility] Reason for Consult: 68 yo female admitted for vomiting blood x3 and melanotic stool this a.m. Hx of peptic ulcer disease and bleeding ulcer in 2016. Hgb 12.3 and Hct 38.9. Zofran/Phenergan ordered for N/V. Protonix drip. Call Completed: Yes 06/28/18 15:18 Consult to Occupational Therapy [CONS] Routine Comment: Evaluate, develop and implement POC Reason for Consult: Patient reports bilateral LE weakness and experiences some difficulty w/ ambulation. Please assess patient for ambulation strength, stability, safety, and possible home assistive/rehabilitation needs. Does patient have active BEDREST order?: No Is patient medically & hemodynamically stable?: Yes Patient assessed for mobility or mobilized this visit?: No Consult to Agility Instructor [CONS] Routine Reason for SW Consult: Please assess patient for possible home needs for post -discharge planning. 06/28/18 15:20 Consult to Physical Therapy [CONS] Routine Comment: Evaluate, develop and implement POC Reason for Consult: Patient reports bilateral LE weakness and experiences some difficulty w/ ambulation. Please assess patient for ambulation strength, stability, safety, and possible home assistive/rehabilitation needs. Does patient have active BEDREST order?: No Is patient medically & hemodynamically stable?: Yes Patient assessed for mobility or mobilized this visit?: No - Constitutional Vitals: Temp Pulse Resp BP Pulse Ox 98.1 F 87 14 105/71 93 06/29/18 14:45 06/29/18 14:45 06/29/18 14:45 06/29/18 14:45 06/29/18 14:45 General appearance: Present: cooperative, mild distress (Nausea, abdominal pain , SOB), A&O X 3, pleasant, obese, answers questions appropriately Exam: General: Alert and oriented, not in acute distress. Cardiovascular:Normal S1 & S2, No JVD. Pulse regular. Lungs: clear to auscultation, no wheezes/rales Abdomen:Soft, non-tender, no rigidity. Extremities:No deformity or swelling - Patient Status Disposition: Home, Self-Care Condition: Good Functional capacity at discharge: independent ambulation Overall status at discharge: patient is progressing back to baseline - Discharge Instructions Instructions: Chronic Obstructive Pulmonary Disease (DC), Chronic Hypertension (DC) Follow Up With: Susy London CNP [Primary Care Provider] - - Diet and Activity Activity: resume usual activities as tolerated Diet: advance to your usual diet
--- NOTE | 2018-07-01 22:15 | Electrocardiograph Report ---
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
== END 2018-06-29 18:41 | disposition home or self-care (01) ==
LOC: EMEROOARM 10:38 → 3ANU 10:38 → SUATTDRO 12:54 → 3ANU 13:33
PROVIDERS: ADMIT Student in an Organized Health Care Education/Training Program; ATTEND Internal Medicine

== ENCOUNTER 2020-12-12 15:12 | Inpatient (IN) ==
[2020-12-12] MEDS ORDERED: 0.9 % Sodium Chloride 1,000 ML IVC ONE ×2 (15:29→16:53)
[2020-12-12 15:48] LABS: Basophils % 0.2 %; Eosinophils # 0.1 K/mcL (0.0-0.6); Eosinophils % 0.5 %; Hematocrit 44.8 % (35.3-44.9); Hemoglobin 15.2 g/dL (11.5-15.4); Immature Granulocytes % 0.7 % (0-4); Lymphocytes # 0.4 K/mcL (0.6-4.6); Lymphocytes % 2.1 %; Mean Corpuscular HGB Conc 33.9 g/dL (31.6-35.5); Mean Corpuscular Hemoglobin 29.2 pg (28.0-33.3); Mean Corpuscular Volume 86.2 fL (83.0-100.0); Mean Platelet Volume 8.8 fL (9.4-12.4); Monocytes # 0.4 K/mcL (0.0-1.3); Monocytes % 2.1 %; Neutrophils # 15.7 K/mcL (1.6-8.9); Platelet Count 182 K/mcL (140-400); Red Cell Distribution Width 13.1 % (11.5-14.5); Segmented Neutrophils % 94.4 %; White Blood Count 16.6 K/mcL (4.3-11.1)
[2020-12-12 15:58] LABS: Alanine Aminotransferase 13 Units/L (7-52); Albumin 3.9 g/dL (3.5-5.7); Albumin/Globulin Ratio 1.5 (1.1-2.2); Alkaline Phosphatase 94 Units/L (34-104); Aspartate Amino Transferase 19 Units/L (13-39); BUN/Creatinine Ratio 12 (6-26); Bilirubin,Direct 0.1 mg/dL (0.0-0.2); Bilirubin,Indirect 0.6 mg/dL (0.0-1.0); Bilirubin,Total 0.7 mg/dL (0.3-1.0); Blood Urea Nitrogen 11 mg/dL (8-23); Calcium 8.8 mg/dL (8.6-10.3); Carbon Dioxide 26 mEq/L (23-29); Chloride 103 mEq/L (98-107); Globulin 2.6 g/dL (2.4-3.5); Glucose 120 mg/dL (70-105); Lipase 41 Units/L (11-82); Osmolality,Calculated 285 (280-300); Potassium 3.1 mEq/L (3.5-5.1); Sodium 137 mEq/L (136-145); Total Protein 6.5 g/dL (6.4-8.9); eGFR For African Americans > 60 (> 60); eGFR For Non-African Americans > 60 (> 60)
[2020-12-12 16:33] LABS: Bilirubin,Urine Negative (Negative); Blood,Urine Negative (Negative); Clarity,Urine Clear (Clear); Color,Urine Light-Yellow (Yellow); Glucose,Urine (UA) Normal (Normal); Ketones,Urine Negative (Negative); Leukocyte Esterase,Urine Negative (Negative); Nitrite,Urine Negative (Negative); Protein,Urine Trace mg/dL (Neg-Trace); Specific Gravity,Urine 1.012 (1.010-1.025); Urobilinogen,Urine Normal (Normal)
[2020-12-12 16:42] LABS: Adenovirus Not Detected (Not Detect); Bordetella Pertussis Not Detected (Not Detect); Chlamydophila pneumoniae Not Detected (Not Detect); Coronavirus 229E Not Detected (Not Detect); Coronavirus HKU1 Not Detected (Not Detect); Coronavirus NL63 Not Detected (Not Detect); Coronavirus OC43 Not Detected (Not Detect); Human Metapneumovirus Not Detected (Not Detect); Human Rhinovirus/Enterovirus Not Detected (Not Detect); Influenza A Subtype 2009 H1 Not Detected (Not Detect); Influenza B Not Detected (Not Detect); Mycoplasma pneumoniae Not Detected (Not Detect); Parainfluenza Virus 1 Not Detected (Not Detect); Parainfluenza Virus 2 Not Detected (Not Detect); Parainfluenza Virus 3 Not Detected (Not Detect); Parainfluenza Virus 4 Not Detected (Not Detect); Respiratory Syncytial Virus Not Detected (Not Detect); SARS-CoV-2 Not Detected (Not Detect)
[2020-12-12] MEDS ORDERED: levoFLOXacin 750 MG/150 ML 750 MG/150 ML BAG IVPB ONE (16:46)
[2020-12-12] MEDS ORDERED: MetroNIDAZOLE 500 MG/100 ML 500 MG/100 ML BAG IVPB ONE (16:47)
[2020-12-12] MEDS ORDERED: methylPREDNISolone 125 MG/2 ML VIAL IVP ONE (17:10)
[2020-12-12 17:38] LABS: Troponin I < 0.03 ng/mL (< 0.04)
[2020-12-12] MEDS ORDERED: Ondansetron 4 MG/2 ML VIAL IVP PRN (17:59)
[2020-12-12] MEDS ORDERED: Naloxone 0.4 MG/ML INJ IVP PRN (17:59)
[2020-12-12] MEDS ORDERED: *HR* Dextrose 50 % in Water (Vial) 50 ML VIAL IVP PRN (18:11)
[2020-12-12] MEDS ORDERED: Dextrose Gel 15 GM/37.5 ML TUBE PO PRN ×2 (18:11)
[2020-12-12] MEDS ORDERED: Potassium Chloride 20 MEQ, Lidocaine 1% 2 ML in 0.9 % Sodium Chloride 250 ML IVPB ONE (18:11)
[2020-12-12] MEDS ORDERED: D5% in Water 1,000 ML IVC PRN (18:11)
[2020-12-12 18:27] LABS: Estimated Average Glucose 120 mg/dl; Hemoglobin A1C 5.8 %
[2020-12-12 18:28] LABS: Magnesium 1.5 mg/dL (1.6-2.6)
[2020-12-12] MEDS: 0.9 % Sodium Chloride 1,000 ML IVC SCH (18:57)
[2020-12-12] MEDS: Budesonide/Formoterol 80/4.5 1 PUFF INH IH SCH (22:55)
[2020-12-12] MEDS: Ipratropium/Albuterol Neb 3 ML IH SCH (22:55)
[2020-12-12] MEDS: Insulin LISPRO 300 UNITS/3 ML VIAL SUBQ SCH (23:12)
[2020-12-12] MEDS: MethylPREDNISolone 40 MG/ML VIAL IVP SCH (23:14)
[2020-12-12] MEDS: MetroNIDAZOLE 500 MG/100 ML 500 MG/100 ML BAG IVPB SCH (23:16)
[2020-12-13] MEDS: Ipratropium/Albuterol Neb 3 ML IH SCH ×4 (04:07→22:18)
[2020-12-13 05:38] LABS: Basophils % 0.1 %; Hematocrit 39.7 % (35.3-44.9); Immature Granulocytes % 0.4 % (0-4); Lymphocytes # 0.3 K/mcL (0.6-4.6); Lymphocytes % 1.6 %; Mean Corpuscular Hemoglobin 29.2 pg (28.0-33.3); Mean Corpuscular Volume 85.7 fL (83.0-100.0); Mean Platelet Volume 9.2 fL (9.4-12.4); Monocytes # 0.1 K/mcL (0.0-1.3); Monocytes % 0.3 %; Neutrophils # 20.1 K/mcL (1.6-8.9); Platelet Count 159 K/mcL (140-400); Red Blood Count 4.63 M/mcL (3.82-4.97); Red Cell Distribution Width 13.2 % (11.5-14.5); Segmented Neutrophils % 97.6 %; White Blood Count 20.6 K/mcL (4.3-11.1)
[2020-12-13 05:40] LABS: Hemoglobin 13.5 g/dL (11.5-15.4)
[2020-12-13 05:51] LABS: BUN/Creatinine Ratio 13 (6-26); Blood Urea Nitrogen 13 mg/dL (8-23); Calcium 8.5 mg/dL (8.6-10.3); Carbon Dioxide 23 mEq/L (23-29); Chloride 107 mEq/L (98-107); Glucose 183 mg/dL (70-105); Osmolality,Calculated 291 (280-300); Potassium 3.2 mEq/L (3.5-5.1); Sodium 138 mEq/L (136-145); eGFR For African Americans > 60 (> 60); eGFR For Non-African Americans 56 (> 60)
[2020-12-13] MEDS: Insulin LISPRO 300 UNITS/3 ML VIAL SUBQ SCH ×4 (06:13→23:55)
[2020-12-13] MEDS: MethylPREDNISolone 40 MG/ML VIAL IVP SCH ×4 (06:17→23:51)
[2020-12-13] MEDS: *HR* Heparin 5,000 UNIT/ML VIAL SQ SCH ×2 (06:18→17:52)
[2020-12-13] MEDS: MetroNIDAZOLE 500 MG/100 ML 500 MG/100 ML BAG IVPB SCH ×3 (07:31→23:50)
[2020-12-13] MEDS: 0.9 % Sodium Chloride 1,000 ML IVC SCH ×2 (07:31→23:50)
[2020-12-13] MEDS ORDERED: Potassium Chloride 20 MEQ, Lidocaine 1% 2 ML in 0.9 % Sodium Chloride 250 ML IVPB ONE (07:38)
[2020-12-13] MEDS: levoFLOXacin 750 MG/150 ML 750 MG/150 ML BAG IVPB SCH (08:58)
[2020-12-13] MEDS: DilTIAZem CD (24hr) 180 MG CAP.ER.24H PO SCH (08:58)
[2020-12-13] MEDS ORDERED: Pantoprazole 40 MG VIAL IVP SCH (09:00)
[2020-12-13] MEDS: Tiotropium 10 INH DOSE IH SCH (10:15)
[2020-12-13] MEDS: Budesonide/Formoterol 80/4.5 1 PUFF INH IH SCH ×2 (10:17→22:18)
[2020-12-13] MEDS: clonazePAM 0.5 MG TABLET PO PRN (14:58)
[2020-12-13] MEDS: Pantoprazole 40 MG VIAL IVP SCH (17:52)
[2020-12-13] MEDS: Acetaminophen 325 MG TABLET PO PRN (22:30)
[2020-12-14] MEDS: Ipratropium/Albuterol Neb 3 ML IH SCH ×5 (03:31→20:30)
[2020-12-14] MEDS: Pantoprazole 40 MG VIAL IVP SCH ×2 (05:36→17:04)
[2020-12-14] MEDS: *HR* Heparin 5,000 UNIT/ML VIAL SQ SCH ×2 (05:36→17:24)
[2020-12-14] MEDS: Insulin LISPRO 300 UNITS/3 ML VIAL SUBQ SCH ×5 (05:37→20:50)
[2020-12-14 06:50] LABS: Basophils % 0.1 %; Hematocrit 36.9 % (35.3-44.9); Immature Granulocytes % 0.6 % (0-4); Lymphocytes # 0.3 K/mcL (0.6-4.6); Lymphocytes % 2.1 %; Mean Corpuscular HGB Conc 32.5 g/dL (31.6-35.5); Mean Corpuscular Hemoglobin 29.1 pg (28.0-33.3); Mean Corpuscular Volume 89.6 fL (83.0-100.0); Mean Platelet Volume 9.7 fL (9.4-12.4); Monocytes # 0.2 K/mcL (0.0-1.3); Monocytes % 1.5 %; Neutrophils # 14.9 K/mcL (1.6-8.9); Platelet Count 150 K/mcL (140-400); Red Blood Count 4.12 M/mcL (3.82-4.97); Red Cell Distribution Width 13.5 % (11.5-14.5); Segmented Neutrophils % 95.7 %; White Blood Count 15.6 K/mcL (4.3-11.1)
[2020-12-14] MEDS: DilTIAZem CD (24hr) 180 MG CAP.ER.24H PO SCH (09:04)
[2020-12-14] MEDS: MetroNIDAZOLE 500 MG/100 ML 500 MG/100 ML BAG IVPB SCH ×2 (09:05→17:05)
[2020-12-14] MEDS: levoFLOXacin 750 MG/150 ML 750 MG/150 ML BAG IVPB SCH (09:05)
[2020-12-14] MEDS: MethylPREDNISolone 40 MG/ML VIAL IVP SCH ×2 (09:06→17:04)
[2020-12-14] MEDS: Tiotropium 10 INH DOSE IH SCH (09:18)
[2020-12-14] MEDS: Budesonide/Formoterol 80/4.5 1 PUFF INH IH SCH ×2 (09:22→20:30)
[2020-12-14 09:38] LABS: BUN/Creatinine Ratio 18 (6-26); Blood Urea Nitrogen 17 mg/dL (8-23); Calcium 8.5 mg/dL (8.6-10.3); Carbon Dioxide 19 mEq/L (23-29); Chloride 109 mEq/L (98-107); Glucose 165 mg/dL (70-105); Osmolality,Calculated 291 (280-300); Potassium 3.2 mEq/L (3.5-5.1); Sodium 138 mEq/L (136-145); eGFR For African Americans > 60 (> 60); eGFR For Non-African Americans 57 (> 60)
[2020-12-14] MEDS: clonazePAM 0.5 MG TABLET PO PRN (13:02)
[2020-12-14] MEDS ORDERED: Perflutren Lipid Microsphere 1.3 ML in 0.9 % Sodium Chloride 8.7 ML IVP PRN (13:31)
[2020-12-14] MEDS: Loratadine 10 MG TABLET PO SCH (14:44)
[2020-12-14 16:20] LABS: ABG Base Excess -4 mEq/L (-2 to 3); ABG HCO3 19 mEq/L (21-27); ABG Oxygen Saturation 96 % (95-98); ABG PCO2 31 mmHg (35-45); ABG PH 7.41 pH Units (7.32-7.45); ABG PO2 80 mmHg (85-104); ABG TCO2 20 mEq/L (20-26)
[2020-12-15] MEDS: MethylPREDNISolone 40 MG/ML VIAL IVP SCH ×3 (00:06→20:08)
[2020-12-15] MEDS: MetroNIDAZOLE 500 MG/100 ML 500 MG/100 ML BAG IVPB SCH ×4 (00:07→23:28)
[2020-12-15] MEDS: Ipratropium/Albuterol Neb 3 ML IH SCH ×5 (04:08→14:45)
[2020-12-15] MEDS: *HR* Heparin 5,000 UNIT/ML VIAL SQ SCH ×2 (05:02→16:25)
[2020-12-15] MEDS: Pantoprazole 40 MG VIAL IVP SCH (05:03)
[2020-12-15 05:16] LABS: Basophils % 0.1 %; Hemoglobin 12.6 g/dL (11.5-15.4); Immature Granulocytes % 0.9 % (0-4); Lymphocytes # 0.3 K/mcL (0.6-4.6); Lymphocytes % 2.8 %; Mean Corpuscular HGB Conc 33.2 g/dL (31.6-35.5); Mean Corpuscular Hemoglobin 29.8 pg (28.0-33.3); Mean Corpuscular Volume 89.8 fL (83.0-100.0); Mean Platelet Volume 9.5 fL (9.4-12.4); Monocytes # 0.2 K/mcL (0.0-1.3); Monocytes % 1.7 %; Neutrophils # 9.8 K/mcL (1.6-8.9); Platelet Count 143 K/mcL (140-400); Red Blood Count 4.23 M/mcL (3.82-4.97); Red Cell Distribution Width 13.8 % (11.5-14.5); Segmented Neutrophils % 94.5 %; White Blood Count 10.4 K/mcL (4.3-11.1)
[2020-12-15 05:32] LABS: BUN/Creatinine Ratio 21 (6-26); Blood Urea Nitrogen 20 mg/dL (8-23); Calcium 8.6 mg/dL (8.6-10.3); Carbon Dioxide 21 mEq/L (23-29); Chloride 108 mEq/L (98-107); Glucose 174 mg/dL (70-105); Osmolality,Calculated 291 (280-300); Potassium 3.5 mEq/L (3.5-5.1); Sodium 137 mEq/L (136-145); eGFR For African Americans > 60 (> 60); eGFR For Non-African Americans 58 (> 60)
[2020-12-15] MEDS: Budesonide/Formoterol 80/4.5 1 PUFF INH IH SCH ×2 (07:48→22:49)
[2020-12-15] MEDS: Tiotropium 10 INH DOSE IH SCH (07:50)
[2020-12-15] MEDS: levoFLOXacin 750 MG/150 ML 750 MG/150 ML BAG IVPB SCH (08:46)
[2020-12-15] MEDS: Loratadine 10 MG TABLET PO SCH (08:46)
[2020-12-15] MEDS: DilTIAZem CD (24hr) 180 MG CAP.ER.24H PO SCH (08:46)
[2020-12-15] MEDS: Insulin LISPRO 300 UNITS/3 ML VIAL SUBQ SCH ×4 (08:55→20:10)
[2020-12-15] MEDS ORDERED: MethylPREDNISolone 40 MG/ML VIAL IVP SCH (09:00)
[2020-12-15] MEDS ORDERED: Ipratropium Neb 0.5 MG NEBULIZER IH PRN (14:15)
[2020-12-15] MEDS ORDERED: Furosemide 40 MG/4 ML VIAL IVP ONE (16:42)
[2020-12-15] MEDS: Levalbuterol Neb 0.63 MG/3 ML IH SCH (22:50)
[2020-12-16] MEDS: Levalbuterol Neb 0.63 MG/3 ML IH SCH ×4 (03:47→22:48)
[2020-12-16 04:20] LABS: BUN/Creatinine Ratio 21 (6-26); Blood Urea Nitrogen 22 mg/dL (8-23); Calcium 8.3 mg/dL (8.6-10.3); Carbon Dioxide 23 mEq/L (23-29); Chloride 103 mEq/L (98-107); Glucose 175 mg/dL (70-105); Osmolality,Calculated 300 (280-300); Potassium 3.3 mEq/L (3.5-5.1); Sodium 141 mEq/L (136-145); eGFR For African Americans > 60 (> 60); eGFR For Non-African Americans 52 (> 60)
[2020-12-16] MEDS: *HR* Heparin 5,000 UNIT/ML VIAL SQ SCH ×2 (05:26→15:36)
[2020-12-16] MEDS: Loratadine 10 MG TABLET PO SCH (08:23)
[2020-12-16] MEDS: MethylPREDNISolone 40 MG/ML VIAL IVP SCH (08:23)
[2020-12-16] MEDS: DilTIAZem CD (24hr) 180 MG CAP.ER.24H PO SCH (08:24)
[2020-12-16] MEDS: levoFLOXacin 750 MG/150 ML 750 MG/150 ML BAG IVPB SCH (08:24)
[2020-12-16] MEDS: Insulin LISPRO 300 UNITS/3 ML VIAL SUBQ SCH ×4 (08:25→21:06)
[2020-12-16] MEDS: MetroNIDAZOLE 500 MG/100 ML 500 MG/100 ML BAG IVPB SCH ×2 (08:25→15:36)
[2020-12-16] MEDS: Tiotropium 10 INH DOSE IH SCH (10:53)
[2020-12-16] MEDS: Budesonide/Formoterol 80/4.5 1 PUFF INH IH SCH ×2 (10:53→22:48)
[2020-12-16] MEDS ORDERED: Furosemide 20 MG/2 ML VIAL IVP ONE (11:16)
[2020-12-17] MEDS: MetroNIDAZOLE 500 MG/100 ML 500 MG/100 ML BAG IVPB SCH ×2 (00:13→08:18)
[2020-12-17 04:06] LABS: Basophils % 0.4 %; Eosinophils % 0.1 %; Hematocrit 40.8 % (35.3-44.9); Hemoglobin 13.5 g/dL (11.5-15.4); Immature Granulocytes % 2.1 % (0-4); Lymphocytes # 0.4 K/mcL (0.6-4.6); Lymphocytes % 3.9 %; Mean Corpuscular HGB Conc 33.1 g/dL (31.6-35.5); Mean Corpuscular Hemoglobin 29.4 pg (28.0-33.3); Mean Corpuscular Volume 88.9 fL (83.0-100.0); Mean Platelet Volume 9.6 fL (9.4-12.4); Monocytes # 0.6 K/mcL (0.0-1.3); Monocytes % 5.5 %; Neutrophils # 8.8 K/mcL (1.6-8.9); Platelet Count 173 K/mcL (140-400); Red Blood Count 4.59 M/mcL (3.82-4.97); Red Cell Distribution Width 13.8 % (11.5-14.5)
[2020-12-17] MEDS: Levalbuterol Neb 0.63 MG/3 ML IH SCH ×2 (04:26→11:20)
[2020-12-17 04:29] LABS: BUN/Creatinine Ratio 26 (6-26); Blood Urea Nitrogen 25 mg/dL (8-23); Calcium 8.3 mg/dL (8.6-10.3); Carbon Dioxide 29 mEq/L (23-29); Chloride 106 mEq/L (98-107); Glucose 145 mg/dL (70-105); Osmolality,Calculated 297 (280-300); Potassium 3.6 mEq/L (3.5-5.1); Sodium 140 mEq/L (136-145); eGFR For African Americans > 60 (> 60); eGFR For Non-African Americans 56 (> 60)
[2020-12-17] MEDS: *HR* Heparin 5,000 UNIT/ML VIAL SQ SCH ×2 (05:31→21:33)
[2020-12-17] MEDS: Insulin LISPRO 300 UNITS/3 ML VIAL SUBQ SCH ×4 (08:02→21:34)
[2020-12-17] MEDS: Loratadine 10 MG TABLET PO SCH (08:14)
[2020-12-17] MEDS: DilTIAZem CD (24hr) 180 MG CAP.ER.24H PO SCH (08:14)
[2020-12-17] MEDS ORDERED: MethylPREDNISolone 40 MG/ML VIAL IVP SCH (09:00)
[2020-12-17] MEDS: Tiotropium 10 INH DOSE IH SCH (11:20)
[2020-12-17] MEDS: Budesonide/Formoterol 80/4.5 1 PUFF INH IH SCH ×2 (11:20→20:07)
[2020-12-17] MEDS ORDERED: Levalbuterol Neb 0.63 MG/3 ML IH PRN (11:52)
[2020-12-17] MEDS: levoFLOXacin 750 MG/150 ML 750 MG/150 ML BAG IVPB SCH (12:58)
[2020-12-17] MEDS: metroNIDAZOLE 500 MG TABLET PO SCH ×2 (16:16→21:34)
[2020-12-17] MEDS: Furosemide 20 MG/2 ML VIAL IVP SCH (16:17)
[2020-12-18 05:11] LABS: Basophils # 0.1 K/mcL (0.0-0.2); Basophils % 0.8 %; Hematocrit 42.6 % (35.3-44.9); Immature Granulocytes % 3.6 % (0-4); Lymphocytes # 0.6 K/mcL (0.6-4.6); Mean Corpuscular HGB Conc 32.9 g/dL (31.6-35.5); Mean Corpuscular Hemoglobin 28.5 pg (28.0-33.3); Mean Corpuscular Volume 86.8 fL (83.0-100.0); Mean Platelet Volume 9.8 fL (9.4-12.4); Monocytes # 0.7 K/mcL (0.0-1.3); Monocytes % 6.1 %; Nucleated Red Blood Cells 0.2 /100 WBC (0); Platelet Count 164 K/mcL (140-400); Red Blood Count 4.91 M/mcL (3.82-4.97); Red Cell Distribution Width 13.6 % (11.5-14.5); Segmented Neutrophils % 84.5 %; White Blood Count 11.8 K/mcL (4.3-11.1)
[2020-12-18 05:30] LABS: BUN/Creatinine Ratio 27 (6-26); Blood Urea Nitrogen 25 mg/dL (8-23); Calcium 8.4 mg/dL (8.6-10.3); Carbon Dioxide 30 mEq/L (23-29); Chloride 101 mEq/L (98-107); Glucose 118 mg/dL (70-105); Osmolality,Calculated 289 (280-300); Potassium 3.6 mEq/L (3.5-5.1); Sodium 137 mEq/L (136-145); eGFR For African Americans > 60 (> 60); eGFR For Non-African Americans 59 (> 60)
[2020-12-18] MEDS: *HR* Heparin 5,000 UNIT/ML VIAL SQ SCH ×2 (06:10→17:32)
[2020-12-18] MEDS: Tiotropium 10 INH DOSE IH SCH (07:20)
[2020-12-18] MEDS: Budesonide/Formoterol 80/4.5 1 PUFF INH IH SCH ×2 (07:20→22:35)
[2020-12-18] MEDS: levoFLOXacin 750 MG TABLET PO SCH (08:57)
[2020-12-18] MEDS: DilTIAZem CD (24hr) 180 MG CAP.ER.24H PO SCH (08:57)
[2020-12-18] MEDS: metroNIDAZOLE 500 MG TABLET PO SCH ×3 (08:57→22:01)
[2020-12-18] MEDS: Loratadine 10 MG TABLET PO SCH (08:58)
[2020-12-18] MEDS: Furosemide 20 MG/2 ML VIAL IVP SCH (08:59)
[2020-12-18] MEDS: Insulin LISPRO 300 UNITS/3 ML VIAL SUBQ SCH ×3 (08:59→17:33)
[2020-12-18] MEDS ORDERED: predniSONE 20 MG TABLET PO SCH (09:00)
[2020-12-18] MEDS: Nystatin SUSP 5 ML UD.LIQ PO SCH ×3 (12:10→22:01)
[2020-12-19] MEDS: Insulin LISPRO 300 UNITS/3 ML VIAL SUBQ SCH ×5 (00:01→22:12)
[2020-12-19 02:37] LABS: BUN/Creatinine Ratio 26 (6-26); Blood Urea Nitrogen 26 mg/dL (8-23); Calcium 8.4 mg/dL (8.6-10.3); Carbon Dioxide 27 mEq/L (23-29); Chloride 100 mEq/L (98-107); Glucose 126 mg/dL (70-105); Osmolality,Calculated 290 (280-300); Potassium 3.8 mEq/L (3.5-5.1); Sodium 137 mEq/L (136-145); eGFR For African Americans > 60 (> 60); eGFR For Non-African Americans 55 (> 60)
[2020-12-19 05:40] LABS: Hematocrit 46.9 % (35.3-44.9); Hemoglobin 15.6 g/dL (11.5-15.4); Mean Corpuscular HGB Conc 33.3 g/dL (31.6-35.5); Mean Corpuscular Hemoglobin 29.1 pg (28.0-33.3); Mean Corpuscular Volume 87.3 fL (83.0-100.0); Mean Platelet Volume 9.7 fL (9.4-12.4); Nucleated Red Blood Cells 0.2 /100 WBC (0); Platelet Count 188 K/mcL (140-400); Red Blood Count 5.37 M/mcL (3.82-4.97); Red Cell Distribution Width 13.8 % (11.5-14.5)
[2020-12-19] MEDS: *HR* Heparin 5,000 UNIT/ML VIAL SQ SCH ×2 (05:50→16:49)
[2020-12-19 06:01] LABS: Lymphocytes # 1.6 K/mcL (0.6-4.6); Monocytes # 0.5 K/mcL (0.0-1.3); Neutrophils # 10.9 K/mcL (1.6-8.9); Platelet Estimate Normal (Normal)
[2020-12-19] MEDS: Nystatin SUSP 5 ML UD.LIQ PO SCH ×4 (09:20→22:16)
[2020-12-19] MEDS: predniSONE 20 MG TABLET PO SCH (09:20)
[2020-12-19] MEDS: DilTIAZem CD (24hr) 180 MG CAP.ER.24H PO SCH (09:20)
[2020-12-19] MEDS: metroNIDAZOLE 500 MG TABLET PO SCH ×3 (09:20→22:16)
[2020-12-19] MEDS: Furosemide 20 MG/2 ML VIAL IVP SCH (09:20)
[2020-12-19] MEDS: levoFLOXacin 750 MG TABLET PO SCH (09:20)
[2020-12-19] MEDS: Loratadine 10 MG TABLET PO SCH (09:21)
[2020-12-19] MEDS: Tiotropium 10 INH DOSE IH SCH (10:28)
[2020-12-19] MEDS: Budesonide/Formoterol 80/4.5 1 PUFF INH IH SCH ×2 (10:28→22:08)
[2020-12-19] MEDS: Acetaminophen 325 MG TABLET PO PRN (22:25)
[2020-12-20 03:01] LABS: Basophils # 0.1 K/mcL (0.0-0.2); Basophils % 0.7 %; Eosinophils % 0.3 %; Hematocrit 48.1 % (35.3-44.9); Hemoglobin 15.9 g/dL (11.5-15.4); Lymphocytes # 0.9 K/mcL (0.6-4.6); Lymphocytes % 8.3 %; Mean Corpuscular HGB Conc 33.1 g/dL (31.6-35.5); Mean Corpuscular Volume 87.8 fL (83.0-100.0); Mean Platelet Volume 9.8 fL (9.4-12.4); Monocytes # 0.8 K/mcL (0.0-1.3); Monocytes % 7.6 %; Neutrophils # 8.5 K/mcL (1.6-8.9); Platelet Count 192 K/mcL (140-400); Red Blood Count 5.48 M/mcL (3.82-4.97); Red Cell Distribution Width 13.6 % (11.5-14.5); Segmented Neutrophils % 77.1 %
[2020-12-20 03:20] LABS: Platelet Estimate Normal (Normal)
[2020-12-20 03:24] LABS: BUN/Creatinine Ratio 21 (6-26); Blood Urea Nitrogen 22 mg/dL (8-23); Calcium 8.6 mg/dL (8.6-10.3); Carbon Dioxide 30 mEq/L (23-29); Chloride 99 mEq/L (98-107); Glucose 116 mg/dL (70-105); Osmolality,Calculated 288 (280-300); Potassium 3.7 mEq/L (3.5-5.1); Sodium 137 mEq/L (136-145); eGFR For African Americans > 60 (> 60); eGFR For Non-African Americans 53 (> 60)
[2020-12-20] MEDS: *HR* Heparin 5,000 UNIT/ML VIAL SQ SCH (05:40)
[2020-12-20] MEDS: Tiotropium 10 INH DOSE IH SCH (07:47)
[2020-12-20] MEDS: Budesonide/Formoterol 80/4.5 1 PUFF INH IH SCH (07:48)
[2020-12-20] MEDS: Furosemide 20 MG/2 ML VIAL IVP SCH (08:01)
[2020-12-20] MEDS: metroNIDAZOLE 500 MG TABLET PO SCH ×2 (08:02→14:37)
[2020-12-20] MEDS: predniSONE 20 MG TABLET PO SCH (08:02)
[2020-12-20] MEDS: levoFLOXacin 750 MG TABLET PO SCH (08:02)
[2020-12-20] MEDS: Nystatin SUSP 5 ML UD.LIQ PO SCH ×2 (08:02→12:31)
[2020-12-20] MEDS: Loratadine 10 MG TABLET PO SCH (08:02)
[2020-12-20] MEDS: DilTIAZem CD (24hr) 180 MG CAP.ER.24H PO SCH (08:02)
[2020-12-20] MEDS: Insulin LISPRO 300 UNITS/3 ML VIAL SUBQ SCH ×2 (08:03→11:38)
[2020-12-20 14:34] VITALS: BP 140/77
== END 2020-12-20 17:42 | disposition home or self-care (01) | DRG 871 ==
LOC: EMEROOARM 15:12 → 3ANU 15:12 → SUATTDRO 12-14 17:41
PROVIDERS: ADMIT Internal Medicine; ATTEND Internal Medicine